=== PATIENT | female | born 1975 | race Caucasian/White ===

== ENCOUNTER 2018-06-18 23:42 | Emergency (ER) | payer MEDICARE ==
[~2018-06-18] VITALS: Ht 170.2 cm; Wt 84.1 kg
[~2018-06-18 23:42] MED LIST: ADDERALL 20 MG20 M1 PO; ATIVAN2 MG PO; CELEXA40 MG PO; CLARITIN 10 MG10 MG PO; CLEOCIN HCL300 MG PO; COUMADIN7.5 MG PO; HYDROCODON-ACE1 EAC7 PO; LIORESAL 10 MG10 MG PO; LOVENOX INJ100 MG/ML SQ; NICODERM TD; NORCO 10/325 TA1 TA1 PO; PRAVACHOL10 MG PO; RISPERDAL2 MG PO; SONATA10 MG PO; THORAZINE50 MG PO; ULTRAM ER100 MG PO; VIBRAMYCIN 100100 MG PO
[2018-06-18 23:52] VITALS: Ht 170.2 cm; Wt 84.1 kg
[2018-06-18] MEDS ORDERED: BUPROPION XL300 MG PO (23:53)
[2018-06-18] MEDS ORDERED: AMBIEN10 MG PO (23:53)
[2018-06-18] MEDS ORDERED: ENBREL25 MG/0.5 (23:54)
[2018-06-18] MEDS ORDERED: MOBIC7.5 MG PO (23:54)
[2018-06-18] MEDS ORDERED: ESTRACE1 MG PO (23:54)
[2018-06-19] MEDS ORDERED: BACTRIM DS TABL1 TAB PO (00:29)
[2018-06-19 01:26] VITALS: BP 118/64
== END 2018-06-19 01:29 | disposition home or self-care (01) ==
LOC: D.ER 23:42
DX: L03.116 Cellulitis of left lower limb (principal); F17.200 Nicotine dependence, unspecified, uncomplicated

== ENCOUNTER 2018-06-21 18:43 | Inpatient (IN) | payer MEDICARE ==
[~2018-06-21] VITALS: Ht 170.2 cm; Wt 84.1 kg
[~2018-06-21 18:43] MED LIST changes: +AMBIEN10 MG PO; +BACTRIM DS TABL1 TAB PO; +BUPROPION XL300 MG PO; +ENBREL25 MG/0.5; +ESTRACE1 MG PO; +MOBIC7.5 MG PO
[2018-06-21 19:19] LABS: BASOPHILS 0.5 % (0-2); EOSINOPHILS 3.3 % (0-7); HEMATOCRIT 37.3 % (36.0-48.0); HEMOGLOBIN 12.2 g/dL (12-16); IMMATURE GRANULOCYTES 0.4 % (0-5); MCH 28.6 pg (26.0-34.0); MCHC 32.7 g/dL (31.0-37.0); MCV 87.4 fL (80.0-100.0); MEAN PLATELET VOLUME 8.7 fL (7.4-10.4); MONOCYTES 9.8 % (2-11); RBC 4.27 10x6/uL (4.00-5.40); RDW 13.1 % (11.5-14.5); WBC 8.4 10x3/uL (4.8-10.8)
[2018-06-21 19:26] LABS: PLATELET COUNT 413 10x3/uL (130-400)
[2018-06-21 19:37] LABS: ALBUMIN 2.8 g/dL (3.4-5.0); ALKALINE PHOSPHATASE 64 U/L (46-116); ALT (SGPT) 24 U/L (10-68); BILIRUBIN - TOTAL 0.12 mg/dL (0.2-1.3); CALC OSMOLALITY 270 mosm/kg (275-300); CALCIUM 8.8 mg/dL (8.5-10.1); CARBON DIOXIDE 28.4 mmol/L (21.0-32.0); CHLORIDE - SERUM 101 mmol/L (98-107); CREATININE - SERUM 0.8 mg/dL (0.6-1.3); GLUCOSE 106 mg/dL (74-106); PROTEIN - SERUM 6.8 g/dL (6.4-8.2); SODIUM 136 mmol/L (136-145); UREA NITROGEN 11 mg/dL (7-18); eGFR NON AFRICAN AMERICAN 83 mL/min (90-120)
[2018-06-21 22:20] LABS: ERYTHROCYTE SEDIMENTATION RATE 35 mm/hr (0-20)
[2018-06-22 00:19] VITALS: BP 132/81; BMI 29.0
[2018-06-22 05:13] VITALS: BP 116/79
[2018-06-22 05:43] LABS: BASOPHILS 0.4 % (0-2); EOSINOPHILS 3.4 % (0-7); HEMATOCRIT 33.3 % (36.0-48.0); HEMOGLOBIN 10.6 g/dL (12-16); IMMATURE GRANULOCYTES 0.1 % (0-5); LYMPHOCYTES 33.1 % (15-50); MCH 27.8 pg (26.0-34.0); MCHC 31.8 g/dL (31.0-37.0); MCV 87.4 fL (80.0-100.0); MEAN PLATELET VOLUME 8.8 fL (7.4-10.4); MONOCYTES 10.4 % (2-11); NEUTROPHILS 52.6 % (40-80); PLATELET COUNT 387 10x3/uL (130-400); RBC 3.81 10x6/uL (4.00-5.40); WBC 6.8 10x3/uL (4.8-10.8)
[2018-06-22 06:00] LABS: CALC OSMOLALITY 278 mosm/kg (275-300); CALCIUM 8.2 mg/dL (8.5-10.1); CHLORIDE - SERUM 104 mmol/L (98-107); CREATININE - SERUM 0.7 mg/dL (0.6-1.3); GLUCOSE 109 mg/dL (74-106); POTASSIUM - SERUM 3.2 mmol/L (3.5-5.1); SODIUM 140 mmol/L (136-145); UREA NITROGEN 9 mg/dL (7-18); eGFR NON AFRICAN AMERICAN > 90 mL/min (90-120)
[2018-06-22 08:20] VITALS: BP 118/80
[2018-06-22 09:30] VITALS: Ht 170.2 cm; Wt 84.1 kg
[2018-06-22 11:51] VITALS: BP 129/86
[2018-06-22 15:52] VITALS: BP 110/71
[2018-06-22 20:52] VITALS: BP 121/87
[2018-06-23 04:22] VITALS: BP 134/80
[2018-06-23 08:48] VITALS: BP 122/89
[2018-06-23 12:45] VITALS: BP 157/69
[2018-06-23 16:57] VITALS: BP 130/76
[2018-06-23 20:00] VITALS: BP 122/82
[2018-06-24 05:02] VITALS: BP 154/84
[2018-06-24 08:54] VITALS: BP 147/96
[2018-06-24 12:28] VITALS: BP 145/86
[2018-06-24 16:28] VITALS: BP 136/89
[2018-06-24 20:00] VITALS: BP 133/81
[2018-06-25] VITALS: BP 137/87
[2018-06-25 04:00] VITALS: BP 130/80
[2018-06-25 05:46] LABS: BASOPHILS 0.6 % (0-2); EOSINOPHILS 5.5 % (0-7); HEMATOCRIT 36.1 % (36.0-48.0); HEMOGLOBIN 11.8 g/dL (12-16); IMMATURE GRANULOCYTES 0.5 % (0-5); LYMPHOCYTES 33.9 % (15-50); MCH 28.5 pg (26.0-34.0); MCHC 32.7 g/dL (31.0-37.0); MCV 87.2 fL (80.0-100.0); MEAN PLATELET VOLUME 8.5 fL (7.4-10.4); MONOCYTES 7.9 % (2-11); NEUTROPHILS 51.6 % (40-80); PLATELET COUNT 419 10x3/uL (130-400); RBC 4.14 10x6/uL (4.00-5.40); RDW 12.6 % (11.5-14.5); WBC 6.6 10x3/uL (4.8-10.8)
[2018-06-25 06:04] LABS: ALBUMIN 2.5 g/dL (3.4-5.0); ANION GAP 9.9 mmol/L (8-16); BILIRUBIN - TOTAL 0.18 mg/dL (0.2-1.3); CALCIUM 8.6 mg/dL (8.5-10.1); CARBON DIOXIDE 29.9 mmol/L (21.0-32.0); CREATININE - SERUM 0.9 mg/dL (0.6-1.3); POTASSIUM - SERUM 3.8 mmol/L (3.5-5.1); PROTEIN - SERUM 6.3 g/dL (6.4-8.2)
[2018-06-25 08:33] VITALS: BP 161/91
[2018-06-25] MEDS ORDERED: DOXYCYCLINE HY100 M2 PO (11:12)
[2018-06-25 12:31] VITALS: BP 124/88
== END 2018-06-25 14:39 | disposition home or self-care (01) | DRG 603 ==
LOC: D.ER 18:43 → OBSVTIME 22:25 → D.MS 22:25
PROVIDERS: Family Medicine; Internal Medicine Nephrology
DX: L03.116 Cellulitis of left lower limb (principal); M32.9 Systemic lupus erythematosus, unspecified; D64.9 Anemia, unspecified; E87.6 Hypokalemia

== ENCOUNTER 2018-10-22 12:20 | Emergency (ER) | payer MEDICARE ==
[~2018-10-22] VITALS: Ht 170.2 cm; Wt 81.8 kg
[~2018-10-22 12:20] MED LIST changes: +DOXYCYCLINE HY100 M2 PO
[2018-10-22 12:31] VITALS: Ht 170.2 cm; Wt 81.8 kg
[2018-10-22] MEDS ORDERED: CLEOCIN HCL300 MG PO (14:27)
[2018-10-22] MEDS ORDERED: EC-NAPROSYN500 MG PO (14:27)
[2018-10-22 14:47] VITALS: BP 124/74
== END 2018-10-22 15:15 | disposition home or self-care (01) ==
LOC: D.ER 12:20
DX: L02.413 Cutaneous abscess of right upper limb (principal)

== ENCOUNTER 2018-11-19 13:56 | Emergency (ER) | payer MEDICARE ==
[~2018-11-19] VITALS: Ht 170.2 cm; Wt 81.8 kg
[~2018-11-19 13:56] MED LIST changes: +EC-NAPROSYN500 MG PO
[2018-11-19 14:07] VITALS: Ht 170.2 cm; Wt 81.8 kg
[2018-11-19 15:05] LABS: BASOPHILS 0.8 % (0-2); EOSINOPHILS 4.8 % (0-7); HEMOGLOBIN 12.8 g/dL (12-16); IMMATURE GRANULOCYTES 0.3 % (0-5); LYMPHOCYTES 34.7 % (15-50); MCH 27.2 pg (26.0-34.0); MCV 84.9 fL (80.0-100.0); MEAN PLATELET VOLUME 8.7 fL (7.4-10.4); MONOCYTES 8.3 % (2-11); NEUTROPHILS 51.1 % (40-80); PLATELET COUNT 404 10x3/uL (130-400); RBC 4.71 10x6/uL (4.00-5.40); RDW 13.2 % (11.5-14.5)
[2018-11-19 15:20] LABS: APTT 30.4 SECONDS (22.8-39.4); INR 0.97 (0.85-1.17); PROTIME 12.3 SECONDS (11.6-15.0)
[2018-11-19 15:21] LABS: D-DIMER-QUANTITATIVE 0.32 ug/mLFEU (0.20-0.54)
[2018-11-19 15:25] LABS: ALBUMIN 3.2 g/dL (3.4-5.0); ANION GAP 12.5 mmol/L (8-16); BILIRUBIN - TOTAL 0.27 mg/dL (0.2-1.3); C-REACTIVE PROTEIN 0.6 mg/dL (0.0-0.9); CALCIUM 8.8 mg/dL (8.5-10.1); CARBON DIOXIDE 28.2 mmol/L (21.0-32.0); CREATININE - SERUM 0.9 mg/dL (0.6-1.3); POTASSIUM - SERUM 3.7 mmol/L (3.5-5.1); PROTEIN - SERUM 6.9 g/dL (6.4-8.2)
[2018-11-19] MEDS ORDERED: BACTRIM 400-801 TAB PO (16:32)
[2018-11-19] MEDS ORDERED: BACTROBAN NASAL1 GM NASAL (16:32)
[2018-11-19 17:12] VITALS: BP 113/74
== END 2018-11-19 17:12 | disposition home or self-care (01) ==
LOC: D.ER 13:56
PROVIDERS: Family Medicine
DX: M79.604 Pain in right leg (principal); Z86.718 Personal history of other venous thrombosis and embolism; M32.9 Systemic lupus erythematosus, unspecified; F17.200 Nicotine dependence, unspecified, uncomplicated

== ENCOUNTER 2020-03-26 21:53 | Inpatient (IN) | payer MEDICARE, SELFPAY ==
[~2020-03-26] VITALS: Ht 170.2 cm; Wt 90.9 kg
[~2020-03-26 21:53] MED LIST changes: +BACTRIM 400-801 TAB PO; +BACTROBAN NASAL1 GM NASAL
[2020-03-26 23:37] LABS: HEMATOCRIT 32.9 % (36.0-48.0); HEMOGLOBIN 10.6 g/dL (12-16); LYMPHOCYTES 39.6 % (15-50); MCH 26.9 pg (26.0-34.0); MCHC 32.2 g/dL (31.0-37.0); MCV 83.5 fL (80.0-100.0); MEAN PLATELET VOLUME 8.4 fL (7.4-10.4); NEUTROPHILS 46.4 % (40-80); PLATELET COUNT 396 10x3/uL (130-400); RBC 3.94 10x6/uL (4.00-5.40); RDW 13.3 % (11.5-14.5); WBC 3.5 10x3/uL (4.8-10.8)
[2020-03-26 23:46] LABS: APTT 29.3 SECONDS (22.8-39.4); INR 0.94 (0.85-1.17); PROTIME 12.6 SECONDS (11.6-15.0)
[2020-03-26 23:47] LABS: CALC OSMOLALITY 276 mosm/kg (275-300); CALCIUM 8.4 mg/dL (8.5-10.1); CARBON DIOXIDE 28.1 mmol/L (21.0-32.0); CHLORIDE - SERUM 103 mmol/L (98-107); CREATININE - SERUM 1.2 mg/dL (0.6-1.3); D-DIMER-QUANTITATIVE 0.32 ug/mLFEU (0.20-0.54); GLUCOSE 128 mg/dL (74-106); POTASSIUM - SERUM 3.3 mmol/L (3.5-5.1); SODIUM 137 mmol/L (136-145); UREA NITROGEN 15 mg/dL (7-18); eGFR NON AFRICAN AMERICAN 52 mL/min (90-120)
[2020-03-27] VITALS (7 sets, daily range): BP systolic 92–120; BP diastolic 54–74; Ht 170.2 cm; Wt 90.9 kg
[2020-03-27 00:14] LABS: ALBUMIN 2.8 g/dL (3.4-5.0); ALKALINE PHOSPHATASE 58 U/L (30-120); ALT (SGPT) 24 U/L (10-68); BILIRUBIN - TOTAL 0.21 mg/dL (0.2-1.3); CKMB 4.3 U/L (0.0-3.6); CREATINE KINASE 193 UL (21-215); PRO BNP 133 pg/mL (0-125)
--- NOTE | 2020-03-27 01:12 | NUR ---
IV SITE INFILTRATED, ATTEMPTED TO RELOCATE WITH NO SUCCESS AT THIS TIME.
--- NOTE | 2020-03-27 02:00 | NUR ---
PT BROUGHT TO FLOOR A0X4, AMBULATED TO BED WITHOUT DIFFICULTY. BILATERAL LOWER LEGS RED, +1 PITTING EDEMA. IV LEFT FA INFUSING NS @ KVO WITH ZOSYN INFUSING. VSS. UA COLLECTED. GAVE MORPHINE AND ZOFRAN FOR PAIN AND NAUSEA IN LOWER LEGS, STATES THEY ARE ACHING AND BURNING. DENIES OTHER NEEDS AT THIS TIME. CL IN REACH, WILL CTM
[2020-03-27] MEDS ORDERED: TOPAMAX50 MG PO (02:58)
[2020-03-27] MEDS ORDERED: KEPPRA250 MG PO (02:59)
[2020-03-27] MEDS ORDERED: ZOLOFT50 MG PO (02:59)
[2020-03-27 03:26] LABS: BILIRUBIN NEGATIVE (NEGATIVE); GLUCOSE NEGATIVE (NEGATIVE); KETONE NEGATIVE (NEGATIVE); NITRITE NEGATIVE (NEGATIVE); SPECIFIC GRAVITY 1.015 (1.005-1.020); UROBILINOGEN NORMAL (NORMAL)
[2020-03-27 03:28] LABS: BACTERIA FEW /hpf (NEGATIVE); EPITHELIAL CELLS 0-5 /hpf (0-5); RED CELLS - URINE 0-5 /hpf (0-5); WHITE CELLS - URINE 0-5 /hpf (NEGATIVE)
--- NOTE | 2020-03-27 10:23 | NUR ---
PT ALERT X 4. BREATH SOUNDS CLEAR BILAT. IV TO LEFT FOREARM, PATENT, DRESSING CDI. SWELLING TO BLE, REDDENED. PT REPORTING PAIN OF 3/10 AFTER RECEIVING MEDICATIONS PER ORDERS, WILL CONTINUE TO MONITOR. BED LOW, CALL LIGHT IN REACH. NO OTHER NEEDS AT THIS TIME.
--- NOTE | 2020-03-27 19:05 | NUR ---
LYING IN BED. C/O PAIN IN BLE WHICH ARE WARM AND SLIGHTLY PINK. EDEMA NOTED TO BLE. ALERT AND ORIENTED X4. RESP EVEN AND NONLABORED. NS @ 10 MLHR INFUSING IN LT FOREARM. ENCOURAGED USE OF I.S. PEDAL PULSES WNL. AMBULATORY. SR ELEVATED X2. CL IN REACH.
[2020-03-27 19:58] LABS: CKMB 2.6 U/L (0.0-3.6); CREATINE KINASE 130 UL (21-215)
[2020-03-27 19:59] LABS: TROPONIN-I < 0.017 ng/mL (0.000-0.060)
[2020-03-27 20:50] LABS: COMPLEMENT C4 24.4 mg/dL (17.4-52.2)
--- NOTE | 2020-03-27 22:50 | NUR ---
MEDICATED WITH MORPHINE AND ZOFRAN ORDERED FOR C/O PAIN IN BLE. CL IN REACH.
[2020-03-27 23:54] LABS: CKMB 1.7 U/L (0.0-3.6); CREATINE KINASE 122 UL (21-215); TROPONIN-I < 0.017 ng/mL (0.000-0.060)
[2020-03-28] VITALS: BP 105/60
[2020-03-28 04:00] VITALS: BP 116/59
[2020-03-28 05:40] LABS: BASOPHILS 0.7 % (0-2); HEMATOCRIT 34.8 % (36.0-48.0); HEMOGLOBIN 10.8 g/dL (12-16); LYMPHOCYTES 39.4 % (15-50); MCH 26.5 pg (26.0-34.0); MEAN PLATELET VOLUME 8.7 fL (7.4-10.4); MONOCYTES 10.5 % (2-11); NEUTROPHILS 45.4 % (40-80); PLATELET COUNT 372 10x3/uL (130-400); RBC 4.07 10x6/uL (4.00-5.40); WBC 4.2 10x3/uL (4.8-10.8)
[2020-03-28 05:48] LABS: MCV 85.5 fL (80.0-100.0)
[2020-03-28 06:17] LABS: INR 0.99 (0.85-1.17)
[2020-03-28 06:18] LABS: APTT 34.1 SECONDS (22.8-39.4)
[2020-03-28 06:19] LABS: D-DIMER-QUANTITATIVE 0.48 ug/mLFEU (0.20-0.54)
[2020-03-28 06:21] LABS: CALC OSMOLALITY 275 mosm/kg (275-300); CALCIUM 8.4 mg/dL (8.5-10.1); CARBON DIOXIDE 34.6 mmol/L (21.0-32.0); CHLORIDE - SERUM 102 mmol/L (98-107); CKMB 1.8 U/L (0.0-3.6); CREATINE KINASE 112 UL (21-215); CREATININE - SERUM 1.2 mg/dL (0.6-1.3); GLUCOSE 99 mg/dL (74-106); MAGNESIUM - SERUM 1.9 mg/dL (1.8-2.4); PHOSPHOROUS 3.4 mg/dL (2.5-4.9); PRO BNP 524 pg/mL (0-125); SODIUM 138 mmol/L (136-145); THYROID STIMULATING HORMONE 1.63 uIU/mL (0.36-3.74); UREA NITROGEN 12 mg/dL (7-18); eGFR NON AFRICAN AMERICAN 52 mL/min (90-120)
[2020-03-28 06:25] LABS: POTASSIUM - SERUM 3.8 mmol/L (3.5-5.1); TROPONIN-I < 0.017 ng/mL (0.000-0.060)
[2020-03-28 08:00] VITALS: BP 119/75
[2020-03-28 12:01] VITALS: BP 102/60
[2020-03-28] MEDS ORDERED: CLEOCIN HCL300 MG PO (12:04)
--- NOTE | 2020-03-28 14:27 | MORECARE ---
CASE MANAGEMENT DISCHARGE SUMMARY PATIENT: ANA HALEY UNIT: [id number] ADM DATE: 03/27/20 AGE: 44 : 75 SEX: F ROOM/BED: D.[facility]7 AUTHOR: JACK PUGA PHYSICIAN: REFERRING PHYSICIAN: AMELIA DEWEY MD DATE OF SERVICE: 03/28/20 Discharge Plan Patient Name: ANA HALEY Facility: [facility]:[place] : 1975 Planned Disposition: Home Anticipated Discharge Date: Discharge Date: Expected LOS: Initial Reviewer: [id number] Initial Review Date: 03/27/2020 Generated: 03/28/20 3:26 pm Comments DCP- Discharge Planning Updated by [id number]: Cindy Cha on 03/28/20 1:[address] Patient Name: ANA HALEY Admission Status: ER Accout number: [id number] Admission Date: 03-27-2020 : 1975 Admission Diagnosis: Attending: AMELIA DEWEY Current LOS: 1 Anticipated DC Date: Planned Disposition: Home Primary Insurance: MEDICARE PART A ONLY Discharge Planning Comments: CM met with patient at bedside after explaining CM role and obtaining verbal consent. CM discussed availability / needs of home health, REHAB and medical equipment. PATIENT DENIES ANY DISCHARGE NEEDS. [facility] AND [facility] FOR [facility]ARM[facility]Y. LIVES ALONE AND HAS SOMEONE TO PICK HER UP AT TIME OF DC. CM TO FOLLOW AND ASSIST NEEDED. IMM GIVEN AND SIGNED. Career Professional: Cindy Cha Coverage Notice Reviewer: [id number] - Cindy Cha Notice Issued Date-Time: 03/28/2020 14:17 Notice Type: IM Discharge Notice Notice Delivered To: Relationship to Patient: Golf Course Laborer Name: Delivery Method: HAND - Hand Delivered Sherie Days: Prior Verbal Notification: Recipient Understood Notice: Yes Recipient Signature: Yes Med Rec Note Co-signed by Attending: Coverage Notice Comment: Patient Name: ANA HALEY Page [phone] at 1427 All edits/amendments must be made on the electronic document DICTATION DATE: 03/28/20 1426 CHIEF DEVELOPMENT OFFICER: NAY 03/28/20 1426 RPT#: [id number] DC DATE: STATUS: ADM IN [address] [facility] [place] [address] END OF REPORT
[2020-03-28 17:03] VITALS: BP 112/70
--- NOTE | 2020-03-29 09:27 | MORECARE ---
CASE MANAGEMENT DISCHARGE SUMMARY PATIENT: ANA HALEY UNIT: [id number] ADM DATE: 03/27/20 AGE: 44 : 75 SEX: F ROOM/BED: D.2237 AUTHOR: JACK PUGA PHYSICIAN: REFERRING PHYSICIAN: AMELIA DEWEY MD DATE OF SERVICE: 03/29/20 Discharge Plan Patient Name: ANA HALEY Facility: [facility]:[place] : 1975 Planned Disposition: Home Anticipated Discharge Date: Discharge Date: 03/28/2020 Expected LOS: Initial Reviewer: [id number] Initial Review Date: 03/27/2020 Generated: 03/29/20 10:27 am DCP- Discharge Planning Updated by [email or web address]: Cindy Cha on 03/28/20 1:[address] Patient Name: ANA HALEY Admission Status: ER Accout number: [id number] Admission Date: 03-27-2020 : 1975 Admission Diagnosis: Attending: AMELIA DEWEY Current LOS: 1 Anticipated DC Date: Planned Disposition: Home Primary Insurance: MEDICARE PART A ONLY Discharge Planning Comments: CM met with patient at bedside after explaining CM role and obtaining verbal consent. CM discussed availability / needs of home health, REHAB and medical equipment. PATIENT DENIES ANY DISCHARGE NEEDS. [facility] AND [facility] FOR [facility]. LIVES ALONE AND HAS SOMEONE TO PICK HER UP AT TIME OF DC. CM TO FOLLOW AND ASSIST NEEDED. IMM GIVEN AND SIGNED. Hot Dog Vendor: Cindy Cha Coverage Notice Reviewer: [id number] - Cindy Cha Notice Issued Date-Time: 03/28/2020 14:17 Notice Type: IM Discharge Notice Notice Delivered To: Relationship to Patient: Plant Pathologist Name: Delivery Method: HAND - Hand Delivered Sherie Days: Prior Verbal Notification: Recipient Understood Notice: Yes Recipient Signature: Yes Med Rec Note Co-signed by Attending: Coverage Notice Comment: Last DP export: 03/28/20 1:27 p Patient Name: ANA HALEY Page [phone] at 0927 All edits/amendments must be made on the electronic document DICTATION DATE: 03/29/20926 VALIDATION SPECIALIST: DM 03/29/20926 RPT#: [id number] DC DATE:03/28/20 STATUS: DIS IN [facility] [address] [place] [address] END OF REPORT
== END 2020-03-28 17:05 | disposition home or self-care (01) | DRG 948 ==
LOC: D.ER 21:53 → D.MS 03-27 00:52
PROVIDERS: Family Medicine; ADMIT Family Medicine; ATTEND Family Medicine
DX: R60.0 Localized edema (principal); R00.2 Palpitations; D64.9 Anemia, unspecified; E87.6 Hypokalemia; M32.9 Systemic lupus erythematosus, unspecified; G89.29 Other chronic pain; Z86.718 Personal history of other venous thrombosis and embolism; F17.200 Nicotine dependence, unspecified, uncomplicated

== ENCOUNTER 2020-04-05 16:49 | Inpatient (IN) | payer MEDICARE ==
[~2020-04-05] VITALS: Ht 170.2 cm; Wt 90.7 kg
[~2020-04-05 16:49] MED LIST changes: +KEPPRA250 MG PO; +TOPAMAX50 MG PO; +ZOLOFT50 MG PO
[2020-04-05 18:49] LABS: BASOPHILS 0.4 % (0-2); EOSINOPHILS 4.5 % (0-7); HEMOGLOBIN 10.1 g/dL (12-16); LYMPHOCYTES 33.9 % (15-50); MCH 26.7 pg (26.0-34.0); MCHC 31.6 g/dL (31.0-37.0); MCV 84.7 fL (80.0-100.0); MEAN PLATELET VOLUME 8.5 fL (7.4-10.4); MONOCYTES 9.7 % (2-11); NEUTROPHILS 51.5 % (40-80); RBC 3.78 10x6/uL (4.00-5.40); RDW 14.5 % (11.5-14.5); WBC 5.6 10x3/uL (4.8-10.8)
[2020-04-05 18:51] LABS: PLATELET COUNT 510 10x3/uL (130-400)
[2020-04-05 18:59] LABS: CARBON DIOXIDE 27.2 mmol/L (21.0-32.0); CREATININE - SERUM 0.9 mg/dL (0.6-1.3)
[2020-04-05 19:05] LABS: ALBUMIN 3.4 g/dL (3.4-5.0); BILIRUBIN - TOTAL 0.49 mg/dL (0.2-1.3); PROTEIN - SERUM 7.5 g/dL (6.4-8.2)
[2020-04-05 19:14] LABS: POTASSIUM - SERUM 4.2 mmol/L (3.5-5.1)
--- NOTE | 2020-04-05 19:27 | NUR ---
LAB AT PT BEDSIDE TO DRAW BLOOD CULTURES.
--- NOTE | 2020-04-05 20:57 | NUR ---
PT TO RADIOLOGY VIA WHEELCHAIR.
--- NOTE | 2020-04-05 21:29 | NUR ---
PT RETURNED FROM RADIOLOGY.
--- NOTE | 2020-04-05 21:31 | NUR ---
CALLED FLOOR, PT'S ROOM STILL DIRTY.
[2020-04-05 22:21] LABS: APTT 28.8 SECONDS (22.8-39.4); INR 0.97 (0.85-1.17); PROTIME 12.9 SECONDS (11.6-15.0)
[2020-04-05 22:28] LABS: CREATINE KINASE 202 UL (21-215); MAGNESIUM - SERUM 2.2 mg/dL (1.8-2.4); TROPONIN-I < 0.017 ng/mL (0.000-0.060)
[2020-04-05 22:57] VITALS: BP 108/68; BMI 31.4
[2020-04-05] MEDS ORDERED: BUPRENORPHINE HC8 MG SL (23:23)
--- NOTE | 2020-04-06 03:00 | NUR ---
I have reviewed this patient and I concur with the Shift Assessment completed by the Licensed Practical Nurse today this shift.
[2020-04-06 04:00] VITALS: BP 92/46
[2020-04-06 07:42] LABS: BASOPHILS 1.1 % (0-2); EOSINOPHILS 6.2 % (0-7); HEMATOCRIT 33.2 % (36.0-48.0); HEMOGLOBIN 10.3 g/dL (12-16); IMMATURE GRANULOCYTES 0.3 % (0-5); LYMPHOCYTES 45.2 % (15-50); MCH 26.6 pg (26.0-34.0); MCV 85.8 fL (80.0-100.0); MEAN PLATELET VOLUME 8.6 fL (7.4-10.4); MONOCYTES 12.1 % (2-11); NEUTROPHILS 35.1 % (40-80); RBC 3.87 10x6/uL (4.00-5.40); RDW 14.5 % (11.5-14.5)
[2020-04-06 07:52] LABS: PLATELET COUNT 398 10x3/uL (130-400); WBC 3.6 10x3/uL (4.8-10.8)
[2020-04-06 08:19] LABS: ALBUMIN 2.6 g/dL (3.4-5.0); ANION GAP 10.7 mmol/L (8-16); BILIRUBIN - TOTAL 0.22 mg/dL (0.2-1.3); CALCIUM 8.7 mg/dL (8.5-10.1); CARBON DIOXIDE 25.5 mmol/L (21.0-32.0); CREATININE - SERUM 0.9 mg/dL (0.6-1.3); MAGNESIUM - SERUM 2.1 mg/dL (1.8-2.4); POTASSIUM - SERUM 4.2 mmol/L (3.5-5.1)
[2020-04-06 08:23] LABS: PROTEIN - SERUM 5.3 g/dL (6.4-8.2)
[2020-04-06 08:27] VITALS: BP 141/66
--- NOTE | 2020-04-06 09:00 | NUR ---
ALERT AND ORIETNED X4. TRACE EDEMA NOTED TO BLE WITH ERRYTHEMA. PEDAL PULSES NOTED WITH COMPLAINTS OF ACHING TP BLE. PATIENT IS ABLE TO AMBUALTE W/O ASSSIT TO BATHROOM. LUNGS CTA AND DENIES ANY CHEST PAIN OR DISCOMFORT. ENCOURAGED TO USE CALL LIGHT FOR ASSSIT. IVF INFUSING AT PRESCRIBED RATE TO RT. WRIST.
[2020-04-06 13:15] VITALS: BP 94/58
[2020-04-06 17:46] VITALS: BP 120/73
[2020-04-06 20:00] VITALS: BP 111/66
[2020-04-07] VITALS: BP 126/78
[2020-04-07 03:32] LABS: UDS - AMPHET POSITIVE QUAL (NEGATIVE); UDS - BARB NEGATIVE QUAL (NEGATIVE); UDS - BENZO NEGATIVE QUAL (NEGATIVE); UDS - COCAINE NEGATIVE QUAL (NEGATIVE); UDS - OPIATE POSITIVE QUAL (NEGATIVE); UDS - PCP NEGATIVE QUAL (NEGATIVE); UDS - THC NEGATIVE QUAL (NEGATIVE)
[2020-04-07 04:00] VITALS: BP 102/62
--- NOTE | 2020-04-07 04:26 | NUR ---
I have reviewed this patient and I concur with the Shift Assessment completed by the Licensed Practical Nurse today this shift.
[2020-04-07 06:01] LABS: BASOPHILS 0.5 % (0-2); EOSINOPHILS 6.3 % (0-7); HEMATOCRIT 33.7 % (36.0-48.0); HEMOGLOBIN 10.3 g/dL (12-16); LYMPHOCYTES 44.1 % (15-50); MCH 26.3 pg (26.0-34.0); MCHC 30.6 g/dL (31.0-37.0); MCV 86.2 fL (80.0-100.0); MEAN PLATELET VOLUME 8.7 fL (7.4-10.4); MONOCYTES 10.7 % (2-11); NEUTROPHILS 38.4 % (40-80); PLATELET COUNT 436 10x3/uL (130-400); RBC 3.91 10x6/uL (4.00-5.40); RDW 14.3 % (11.5-14.5); WBC 3.7 10x3/uL (4.8-10.8)
[2020-04-07 06:49] LABS: ALBUMIN 2.7 g/dL (3.4-5.0); ANION GAP 10.1 mmol/L (8-16); BILIRUBIN - TOTAL 0.19 mg/dL (0.2-1.3); CALCIUM 8.6 mg/dL (8.5-10.1); CARBON DIOXIDE 26.8 mmol/L (21.0-32.0); CREATININE - SERUM 0.9 mg/dL (0.6-1.3); MAGNESIUM - SERUM 1.9 mg/dL (1.8-2.4); POTASSIUM - SERUM 3.9 mmol/L (3.5-5.1); PROTEIN - SERUM 5.9 g/dL (6.4-8.2); VANCOMYCIN - TROUGH 15.2 ug/mL (10.0-20.0)
--- NOTE | 2020-04-07 08:16 | NUR ---
RESTING IN BED, NO DISTRESS NOTED, IV INFUSING, CONT TO MONITOR PAIN AND REDDNESS TO LOWER LEGS
[2020-04-07 09:35] VITALS: BP 103/66
--- NOTE | 2020-04-07 10:30 | NUR ---
ABT INFUSING SLOWING, D/T PT STATES THAT IV SITE IS GETTING TENDER, HAVE HAD 2 OTHER FLOOR NURSES LOOK FOR NEW IV SITE
[2020-04-07 12:31] VITALS: BP 108/68
--- NOTE | 2020-04-07 14:00 | NUR ---
NEW IV SITE TO R UPPER ARM, CONT INFUSION OF THIS AM VANC
[2020-04-07 16:17] VITALS: BP 110/60
--- NOTE | 2020-04-07 20:40 | NUR ---
WATCHING TV WITH NO COMPLAINTS VOCIED. RESP UNLABORED. IV TO BREEZY WITHOUT REDNESS OR EDEMA NOTED.MILD EDEMA NOTED TO BILATERAL LOWER EXTREMITIES. CL IN REACH,
[2020-04-07 21:23] VITALS: BP 120/77
[2020-04-08 00:56] VITALS: BP 121/76
--- NOTE | 2020-04-08 03:42 | NUR ---
I have reviewed this patient and I concur with the Shift Assessment completed by the Licensed Practical Nurse today this shift.
[2020-04-08 05:03] LABS: BASOPHILS 0.9 % (0-2); EOSINOPHILS 4.4 % (0-7); HEMATOCRIT 36.4 % (36.0-48.0); HEMOGLOBIN 11.2 g/dL (12-16); IMMATURE GRANULOCYTES 0.2 % (0-5); LYMPHOCYTES 41.4 % (15-50); MCH 26.2 pg (26.0-34.0); MCHC 30.8 g/dL (31.0-37.0); MEAN PLATELET VOLUME 8.5 fL (7.4-10.4); MONOCYTES 9.4 % (2-11); NEUTROPHILS 43.7 % (40-80); PLATELET COUNT 480 10x3/uL (130-400); RBC 4.28 10x6/uL (4.00-5.40); RDW 13.8 % (11.5-14.5); WBC 4.6 10x3/uL (4.8-10.8)
[2020-04-08 05:27] LABS: ALBUMIN 2.8 g/dL (3.4-5.0); ANION GAP 9.3 mmol/L (8-16); BILIRUBIN - TOTAL 0.15 mg/dL (0.2-1.3); CARBON DIOXIDE 27.9 mmol/L (21.0-32.0); POTASSIUM - SERUM 4.2 mmol/L (3.5-5.1); PROTEIN - SERUM 6.4 g/dL (6.4-8.2)
[2020-04-08 06:47] VITALS: BP 134/78
--- NOTE | 2020-04-08 07:15 | NUR ---
A&O X4. UP AD GERARDO. NO C/O PAIN. NO S/S OF ACUTE DISTRESS NOTED. IV TO RIGHT UPPER AR, NS INFUSING @ 125ML/HR. SITE PATENT WITHOUT REDNESS OR SWELLING. DENIES ANY NEEDS AT THIS TIME. CALL LIGHT IN REACH. WILL CONTINUE TO MONITOR.
--- NOTE | 2020-04-08 08:03 | NUR ---
AWAKE AND WITHOUT DISTRESS.CALL LIGHT IN REACH
[2020-04-08 08:38] VITALS: BP 112/74
--- NOTE | 2020-04-08 09:00 | NUR ---
IV TO RIGHT UPPER ARM INFILTRATED. CONSULT FOR VASCULAR ACCESS PUT IN.
[2020-04-08 14:02] VITALS: BP 117/72
[2020-04-08 17:27] VITALS: BP 112/65
--- NOTE | 2020-04-08 18:59 | NUR ---
A&O RESTING IN BED WITH EYES OPEN. NO C/O PAIN. NO S/S OF ACUTE DISTRESS NOTED. DENIES ANY NEEDS AT THIS TIME. CALL LIGHT IN REACH. WILL CONTINUE TO MONITOR.
[2020-04-08 21:00] VITALS: BP 131/78
--- NOTE | 2020-04-08 23:47 | NUR ---
REC'D. DURING WALKING ROUNDS CHGE OF SHIFT.IN BATHROOM AND BACK TO BED.SMALL AMT. REDNESS STILL AND SWELLING STATES PAIN IS BETTER.PEDAL PULSES PRESENT WIGGLES TOES AND DORSIFLEXES,MINIMAL DEREASE IN SWELLING STATED. WILL CONTINUE TO MONITOR FOR ANY CHGES.IN NEUROVASCULAR SATUS AND FOLLOW CURRENT PLAN OF CARE.
[2020-04-09] VITALS (7 sets, daily range): BP systolic 112–130; BP diastolic 69–85
[2020-04-09 05:12] LABS: BASOPHILS 0.8 % (0-2); EOSINOPHILS 5.1 % (0-7); HEMATOCRIT 35.9 % (36.0-48.0); HEMOGLOBIN 11.3 g/dL (12-16); IMMATURE GRANULOCYTES 0.2 % (0-5); LYMPHOCYTES 32.2 % (15-50); MCH 26.3 pg (26.0-34.0); MCHC 31.5 g/dL (31.0-37.0); MCV 83.5 fL (80.0-100.0); MEAN PLATELET VOLUME 8.2 fL (7.4-10.4); MONOCYTES 8.6 % (2-11); NEUTROPHILS 53.1 % (40-80); PLATELET COUNT 487 10x3/uL (130-400); RDW 13.6 % (11.5-14.5); WBC 4.9 10x3/uL (4.8-10.8)
[2020-04-09 06:06] LABS: ALBUMIN 2.7 g/dL (3.4-5.0); ANION GAP 10.5 mmol/L (8-16); BILIRUBIN - TOTAL 0.11 mg/dL (0.2-1.3); CALCIUM 9.1 mg/dL (8.5-10.1); CARBON DIOXIDE 27.4 mmol/L (21.0-32.0); CREATININE - SERUM 0.9 mg/dL (0.6-1.3); PHOSPHOROUS 4.8 mg/dL (2.5-4.9); POTASSIUM - SERUM 3.9 mmol/L (3.5-5.1); PROTEIN - SERUM 6.3 g/dL (6.4-8.2)
--- NOTE | 2020-04-09 06:57 | NUR ---
I have reviewed this patient and I concur with the Shift Assessment completed by the Licensed Practical Nurse today this shift.
--- NOTE | 2020-04-09 07:00 | NUR ---
A&O RESTING IN BED WITH EYES OPEN. NO C/O PAIN. NO S/S OF ACUTE DISTRESS NOTED. IV TO LEFT HAND, SL. SITE PATENT WITHOUT REDNESS OR SWELLING. DENIES ANY NEEDS AT THIS TIME. CALL LIGHT IN REACH. WILL CONTINUE TO MONITOR.
--- NOTE | 2020-04-09 10:44 | NUR ---
I have reviewed this patient and I concur with the Shift Assessment completed by the Licensed Practical Nurse today this shift.
--- NOTE | 2020-04-09 18:45 | NUR ---
RESTING IN BED TALKING ON CELL PHONE. NO C/O PAIN. NO S/S OF ACUTE DISTRESS NOTED. DENIES ANY NEEDS AT THIS TIME. CALL LIGHT IN REACH. WILL CONTINUE TO MONITOR.
--- NOTE | 2020-04-10 02:50 | NUR ---
I have reviewed this patient and I concur with the Shift Assessment completed by the Licensed Practical Nurse today this shift.
[2020-04-10 05:25] VITALS: BP 123/68
[2020-04-10 06:58] LABS: ALBUMIN 2.9 g/dL (3.4-5.0); ALKALINE PHOSPHATASE 54 U/L (30-120); ALT (SGPT) 18 U/L (10-68); BILIRUBIN - TOTAL 0.21 mg/dL (0.2-1.3); CALC OSMOLALITY 278 mosm/kg (275-300); CALCIUM 9.3 mg/dL (8.5-10.1); CARBON DIOXIDE 24.8 mmol/L (21.0-32.0); CHLORIDE - SERUM 106 mmol/L (98-107); CREATININE - SERUM 0.7 mg/dL (0.6-1.3); GLUCOSE 99 mg/dL (74-106); MAGNESIUM - SERUM 2.1 mg/dL (1.8-2.4); PHOSPHOROUS 4.6 mg/dL (2.5-4.9); POTASSIUM - SERUM 3.8 mmol/L (3.5-5.1); PROTEIN - SERUM 6.5 g/dL (6.4-8.2); SODIUM 139 mmol/L (136-145); UREA NITROGEN 16 mg/dL (7-18); eGFR NON AFRICAN AMERICAN > 90 mL/min (90-120)
[2020-04-10 07:39] LABS: BASOPHILS 0.7 % (0-2); EOSINOPHILS 4.8 % (0-7); HEMATOCRIT 36.8 % (36.0-48.0); HEMOGLOBIN 11.6 g/dL (12-16); IMMATURE GRANULOCYTES 0.2 % (0-5); LYMPHOCYTES 34.6 % (15-50); MCH 26.4 pg (26.0-34.0); MCHC 31.5 g/dL (31.0-37.0); MCV 83.6 fL (80.0-100.0); MEAN PLATELET VOLUME 8.4 fL (7.4-10.4); MONOCYTES 7.9 % (2-11); NEUTROPHILS 51.8 % (40-80); PLATELET COUNT 527 10x3/uL (130-400); RDW 13.7 % (11.5-14.5); WBC 5.5 10x3/uL (4.8-10.8)
[2020-04-10 08:00] VITALS: BP 127/72
--- NOTE | 2020-04-10 09:42 | NUR ---
A&O RESTING IN BED WITH EYES OPEN. NO C/O PAIN. NO S/S OF ACUTE DISTRESS NOTED. IV TO LEFT HAND, NS INFUSING @ 50ML/HR. SITE PATENT WITHOUT REDNESS OR SWELLING. DENIES ANY NEEDS AT THIS TIME. CALL LIGHT IN REACH. WILL CONTINUE TO MONITOR.
--- NOTE | 2020-04-10 11:25 | NUR ---
I have reviewed this patient and I concur with the Shift Assessment completed by the Licensed Practical Nurse today this shift.
--- NOTE | 2020-04-10 11:55 | MORECARE ---
CASE MANAGEMENT DISCHARGE SUMMARY PATIENT: ANA HALEY UNIT: [id number] ADM DATE: 04/05/20 AGE: 44 : 75 SEX: F ROOM/BED: D.2226 AUTHOR: JACK PUGA PHYSICIAN: REFERRING PHYSICIAN: MAITE DIXON DO DATE OF SERVICE: 04/10/20 Discharge Plan Patient Name: ANA HALEY [facility] [facility] 1975 Planned Disposition: Anticipated Discharge Date: Discharge Date: Expected LOS: Initial Reviewer: [email or web address] Initial Review Date: 04/05/2020 Generated: 04/10/20 12:55 pm DCP- Discharge Planning Updated by [email or web address]: Bia Sanchez on 04/07/20 5:[address] Patient requested CM to fax a letter to her parole office stating that she was in hospital. CM faxed form as requested and gave the patient the original and placed a copy on chart. CM will continue to follow and assist as needed with discharge planning / needs. DCPIA - Discharge Planning Initial Assessment Updated by [email or web address]: Cindy Cha on 04/10/20 11:55 am * Is the patient Alert and Oriented? Yes * PCP NONE * Pharmacy [facility] * Preadmission Environment Home Alone * ADLs Independent * Additional services required to return to the preadmission environment? No * Can the patient safely return to the preadmission environment? Yes * Has this patient been hospitalized within the prior 30 days at any hospital? No Patient Name: ANA HALEY Page [phone] at 1155 All edits/amendments must be made on the electronic document DICTATION DATE: 04/10/20 1155 CURB MACHINE OPERATOR: NAY 04/10/20 1155 RPT#: [id number] DC DATE: STATUS: ADM IN [facility] [address] [place] [address] END OF REPORT
--- NOTE | 2020-04-10 12:02 | MORECARE ---
CASE MANAGEMENT DISCHARGE SUMMARY PATIENT: ANA HALEY UNIT: [id number] ADM DATE: 04/05/20 AGE: 44 : 75 SEX: F ROOM/BED: D.2226 AUTHOR: VIVIEN,DOC PHYSICIAN: REFERRING PHYSICIAN: MAITE DIXON DO DATE OF SERVICE: 04/10/20 Discharge Plan Patient Name: ANA HALEY Facility: [facility]:[place] : 1975 Planned Disposition: Anticipated Discharge Date: Discharge Date: Expected LOS: Initial Reviewer: [id number] Initial Review Date: 04/05/2020 Generated: 04/10/20 1:01 pm Comments DCP- Discharge Planning Updated by [email or web address]: Cindy Cha on 04/10/20 10:[address] Patient Name: ANA HALEY Admission Status: ER Accout number: [id number] Admission Date: 04-05-2020 : 1975 Admission Diagnosis:CELLULITIS OF UNSPECIFIED PART OF LIMB Attending: MAITE DIXON Current LOS: 5 Anticipated DC Date: Planned Disposition: Primary Insurance: MEDICARE PART A ONLY Discharge Planning Comments: CM met with patient at bedside after explaining CM role and obtaining verbal consent. CM discussed availability / needs of home health, REHAB and medical equipment. PATIENT DENIES ANY DISCHARGE NEEDS. ANTICIPATE POSSIBLE DC TOMORROW. CM TO FOLLOW AND ASSIST NEEDED. Paper Control Clerk: Cindy Cha DCP- Discharge Planning Updated by [id number]: Bia Sanchez on 04/07/20 5:[address] Patient requested CM to fax a letter to her parole office stating that she was in hospital. CM faxed form as requested and gave the patient the original and placed a copy on chart. CM will continue to follow and assist as needed with discharge planning / needs. DCPIA - Discharge Planning Initial Assessment Updated by [id number]: Cindy Cha on 04/10/20 11:55 am * Is the patient Alert and Oriented? Yes * PCP NONE * Pharmacy [facility] * Preadmission Environment Home Alone * ADLs Independent * Additional services required to return to the preadmission environment? No * Can the patient safely return to the preadmission environment? Yes * Has this patient been hospitalized within the prior 30 days at any hospital? No Last DP export: 04/10/20 10:55 am Patient Name: ANA HALEY Page [phone] at 1202 All edits/amendments must be made on the electronic document DICTATION DATE: 04/10/201200 TIPPLE REPAIRER: NAY 04/10/201200 RPT#: [id number] DC DATE: STATUS: ADM IN [facility] [address] [place] [address] END OF REPORT
[2020-04-10 12:42] VITALS: BP 117/71
[2020-04-10 16:00] VITALS: BP 118/70
[2020-04-10 20:00] VITALS: BP 118/79
--- NOTE | 2020-04-10 20:00 | NUR ---
PATIENT IS RESTING IN BED WATCHING TV. NO S/S OF ACUTE DISTRESS. NO C/O AT THIS TIME. PATIENT HAS A LEFT HAND IV, NORMAL SALINE @ 50 ML/HR. IV IS PATENT WITHOUT REDNESS, SWELLING, OR TENDERNESS. PATIENT STATES THAT THE INSIDE OF BOTH OF HER CALVES ARE "STILL SORE, BUT MUCH BETTER THAN THEY WERE BEFORE". PATIENT IS UP ADLIB TO THE BATHROOM. CALL LIGHT WITHIN REACH. WILL CONTINUE TO MONITOR.
--- NOTE | 2020-04-10 22:59 | NUR ---
IV HAS INFILTRATED. NO REDNESS OR SWELLING, BUT THE IV IS VERY TENDER TO THE TOUCH AND WILL NOT FLUSH WELL. WILL TRY TO PLACE ANOTHER. CALL LIGHT WITHIN REACH. WILL CONTINUE TO MONITOR.
--- NOTE | 2020-04-11 03:15 | NUR ---
I have reviewed this patient and I concur with the Shift Assessment completed by the Licensed Practical Nurse today this shift.
[2020-04-11 04:00] VITALS: BP 124/70
[2020-04-11 05:30] LABS: BASOPHILS 0.8 % (0-2); EOSINOPHILS 4.4 % (0-7); HEMATOCRIT 38.6 % (36.0-48.0); HEMOGLOBIN 12.3 g/dL (12-16); IMMATURE GRANULOCYTES 0.2 % (0-5); LYMPHOCYTES 36.5 % (15-50); MCH 26.7 pg (26.0-34.0); MCHC 31.9 g/dL (31.0-37.0); MCV 83.7 fL (80.0-100.0); MEAN PLATELET VOLUME 8.4 fL (7.4-10.4); NEUTROPHILS 50.1 % (40-80); PLATELET COUNT 549 10x3/uL (130-400); RBC 4.61 10x6/uL (4.00-5.40); RDW 13.9 % (11.5-14.5); WBC 6.6 10x3/uL (4.8-10.8)
[2020-04-11 05:49] LABS: ANION GAP 12.2 mmol/L (8-16); BILIRUBIN - TOTAL 0.26 mg/dL (0.2-1.3); CALCIUM 9.1 mg/dL (8.5-10.1); CARBON DIOXIDE 24.4 mmol/L (21.0-32.0); PHOSPHOROUS 5.2 mg/dL (2.5-4.9); POTASSIUM - SERUM 3.6 mmol/L (3.5-5.1); PROTEIN - SERUM 6.8 g/dL (6.4-8.2); VANCOMYCIN - TROUGH 20.5 ug/mL (10.0-20.0)
[2020-04-11 09:15] VITALS: BP 111/75
--- NOTE | 2020-04-11 09:52 | NUR ---
ASSESSMENT PER FLOW SHEET. PATIENT IS WITHOUT DISTRESS. CALL LIGHT IN REACH. [facility] REYES VASCULAR HERE TO RESITE IV. IV RIGHT WRIST TENDER AND DOES NOT HAVE BLOOD RETURN
[2020-04-11 17:01] VITALS: BP 109/60
--- NOTE | 2020-04-11 17:09 | NUR ---
PAIN 3/10 TO BILATERAL LEGS AFTER PAIN MEDS PER MAR ORDERED. PATIENT HAS SHOWERED TODAY. REMAINS WITHOUT NEEDS
[2020-04-11 20:00] VITALS: BP 112/75
--- NOTE | 2020-04-11 20:00 | NUR ---
ALERT SITTIG UP IN BED DENIES NEEDS AT THIS TIME, NO REDNESS NOTED TO LOWER LEGS, STATES THEY ARE MUCH BETTER, SEE SHIFT ASSESSMENT, CALL LIGHT IN REACH
[2020-04-12] VITALS: BP 107/66
[2020-04-12 04:00] VITALS: BP 110/68
[2020-04-12 08:32] VITALS: Ht 170.2 cm; Wt 90.7 kg
[2020-04-12 09:13] VITALS: BP 99/57
[2020-04-12] MEDS ORDERED: NICODERM CQ1 EAC3 TOPICAL (11:19)
[2020-04-12 11:47] VITALS: BP 97/53
--- NOTE | 2020-04-12 11:59 | NUR ---
DISCHARGE INSTRUCTIONS,STATES UNDERSTANDING. IV DCD WITH CATH TIP INTACT. GETTING DRESSED FOR RIDE HOME
--- NOTE | 2020-04-12 12:03 | NUR ---
LEFT UNIT VIA WHEELCHAIR FOR TRANSPORT HOME
--- NOTE | 2020-04-13 09:00 | MORECARE ---
CASE MANAGEMENT DISCHARGE SUMMARY PATIENT: ANA HALEY UNIT: [id number] ADM DATE: 04/05/20 AGE: 44 : 75 SEX: F ROOM/BED: D.2226 AUTHOR: VIVIEN,DOC PHYSICIAN: REFERRING PHYSICIAN: MAITE DIXON DO DATE OF SERVICE: 04/13/20 Discharge Plan Patient Name: ANA HALEY Facility: [facility]:[place] : 1975 Planned Disposition: Anticipated Discharge Date: Discharge Date: 04/12/2020 Expected LOS: Initial Reviewer: [id number] Initial Review Date: 04/05/2020 Generated: 04/13/20 10:00 am DCP- Discharge Planning Updated by [email or web address]: Cindy Cha on 04/10/20 10:[address] Patient Name: ANA HALEY Admission Status: ER Accout number: [id number] Admission Date: 04-05-2020 : 1975 Admission Diagnosis:CELLULITIS OF UNSPECIFIED PART OF LIMB Attending: MAITE DIXON Current LOS: 5 Anticipated DC Date: Planned Disposition: Primary Insurance: MEDICARE PART A ONLY Discharge Planning Comments: CM met with patient at bedside after explaining CM role and obtaining verbal consent. CM discussed availability / needs of home health, REHAB and medical equipment. PATIENT DENIES ANY DISCHARGE NEEDS. ANTICIPATE POSSIBLE DC TOMORROW. CM TO FOLLOW AND ASSIST NEEDED. Pile Driving Technician: Cindy Cha DCP- Discharge Planning Updated by [email or web address]: Bia Sanchez on 04/07/20 5:[address] Patient requested CM to fax a letter to her parole office stating that she was in hospital. CM faxed form as requested and gave the patient the original and placed a copy on chart. CM will continue to follow and assist as needed with discharge planning / needs. DCPIA - Discharge Planning Initial Assessment Updated by [email or web address]: Cindy Cha on 04/10/20 11:55 am * Is the patient Alert and Oriented? Yes * PCP NONE * Pharmacy [facility] * Preadmission Environment Home Alone * ADLs Independent * Additional services required to return to the preadmission environment? No * Can the patient safely return to the preadmission environment? Yes * Has this patient been hospitalized within the prior 30 days at any hospital? No Coverage Notice Reviewer: [email or web address] Gerry Cha Notice Issued Date-Time: 04/12/2020 11:30 Notice Type: IM Discharge Notice Notice Delivered To: Relationship to Patient: Airborne Sensor Specialist Name: Delivery Method: HAND - Hand Delivered Sherie Days: Prior Verbal Notification: Recipient Understood Notice: Yes Recipient Signature: Yes Med Rec Note Co-signed by Attending: Coverage Notice Comment: Last DP export: 04/10/20 11:02 am Patient Name: ANA HALEY Page [phone] at 0900 All edits/amendments must be made on the electronic document DICTATION DATE: 04/13/20899 REPLANTING MACHINE CREW: NAY 04/13/20 09 RPT#: [id number] DC DATE:04/12/20 STATUS: DIS IN [facility] [address] [place] [address] END OF REPORT
== END 2020-04-12 12:03 | disposition home or self-care (01) | DRG 603 ==
LOC: D.ER 16:49 → D.MS 18:58
PROVIDERS: Family Medicine; ADMIT Family Medicine; ATTEND Family Medicine
DX: L03.116 Cellulitis of left lower limb (principal); F17.213 Nicotine dependence, cigarettes, with withdrawal; E87.1 Hypo-osmolality and hyponatremia; F17.203 Nicotine dependence unspecified, with withdrawal; L03.115 Cellulitis of right lower limb; M32.9 Systemic lupus erythematosus, unspecified; G89.29 Other chronic pain; M54.9 Dorsalgia, unspecified; D64.9 Anemia, unspecified; F15.90 Other stimulant use, unspecified, uncomplicated; Z86.718 Personal history of other venous thrombosis and embolism

== ENCOUNTER 2020-04-28 20:12 | Emergency (ER) | payer SELFPAY ==
[~2020-04-28] VITALS: Ht 170.2 cm; Wt 113.6 kg
[~2020-04-28 20:12] MED LIST changes: +BUPRENORPHINE HC8 MG SL; +NICODERM CQ1 EAC3 TOPICAL
[2020-04-28 21:01] VITALS: Ht 170.2 cm; Wt 113.6 kg
== END 2020-04-28 21:11 | disposition left against medical advice (07) ==
LOC: D.ER 20:12
DX: L08.9 Local infection of the skin and subcutaneous tissue, unspecified (principal)